=== PATIENT | female | born 1995 | race Caucasian/White ===

== ENCOUNTER 2017-04-10 05:38 | Emergency (ER) | payer OTHER ==
[2017-04-10] MEDS ORDERED: ONDANSETRON HCL/PF 2 MG/ML VIAL IV ONE (06:00)
[2017-04-10] MEDS ORDERED: ONDANSETRON HCL/PF 2 MG/ML VIAL ONE (06:01)
[2017-04-10] MEDS ORDERED: KETOROLAC TROMETHAMINE 30 MG/ML VIAL IV ONE (06:09)
[2017-04-10] MEDS ORDERED: KETOROLAC TROMETHAMINE 30 MG/ML VIAL ONE (06:10)
[2017-04-10] MEDS ORDERED: NORMAL SALINE 1,000 ML IV ONE (06:14)
[2017-04-10 06:19] LABS: Hematocrit 41.6 % (37.0-47.0); Hemoglobin 14.7 gm/dL (12.5-16.0); Mean Cell Volume 83.2 fl (78-100); Mean Corpuscular Hemoglobin 29.4 pg (27-31); Mean Corpuscular Hgb Conc 35.3 g/dl (32-36); Mean Platelet Volume 8.9 fl (6.0-9.5); Neutrophil # 5.1 K/mm3 (1.3-6.0); Platelet Count 299 K/mm3 (150-450); Red Cell Distribution Width 12.7 % (11.5-14.0); White Blood Count 8.4 K/mm3 (4.0-10.5)
--- NOTE | 2017-04-10 06:24 | ERNOTE ---
Abdominal HPI - Narrative Date of Service: 04/10/17 - General Chief Complaint: Abdominal Pain Time Seen by Provider: 04/10/17 06:02 Source: patient - Immun/Allergies/Home Medications Immunizatons: IMMUNIZATION HX Immunizations Up to Date Yes History of Influenza Vaccine Yes Hx Pneumococcal Vaccination No Allergies/Adverse Reactions: Allergies No Known Allergies Allergy (Verified 04/10/17 08:45) Home Medications: HOME MEDICATIONS Nor-Qd 0.35mg 1 tab PO DAILY 04/10/17 [Last Taken Unknown] - History of Present Illness Narrative: 21-year-old patient with no established primary care doctor due to start seeing Karine Naqvi presents to emergency room complaining of right upper quadrant abdominal pain in severe vomiting due to right upper quadrant abdominal pain. Patient has known cholelithiasis with recent exacerbation of severe pain patient 's was seen in consultation with Dr. Ramon. She is scheduled for cholecystectomy tomorrow April 11. Patient reports that she awoke this morning in severe pain and then followed by the emesis her pain is described as right upper quadrant radiating to her back even taking a deep breath causes pretty significant pain. Patient denied any fevers or chills her last intake of was last evening she had potato soup. Patient was initially diagnosed through the walk-in clinic as she did not have a primary care doctor. Patient presented with severe abdominal pain of right upper quadrant abdominal ultrasound was done and demonstrated significant evidence cholelithiasis with concerns for choledocholithiasis. Patient is denies any fevers or chills at this time denies any diarrhea. Date (Duration): 04/10/17 Time (Timing): 04:00 Timing: getting worse Quality: severe Activities at Onset: sleep Modifying Factors - (Improves): Present: analgesics, sitting up Associated Symptoms: Present: back pain, syncope. Absent: heartburn, swelling/ mass in abdomen Prior Abdominal Problems: Present: similar symptoms - started approximately 1-1/ 2 weeks ago with constant right upper quadrant pain previously had been intermittently. Now it's more consistent and the pain does not resolve spontaneously. Review of Systems - Narrative Narrative: Continued right upper quadrant abdominal pain associated with nausea. Diagnosed with cholelithiasis due for cholecystectomy 04/11/[address] Ramon. - Review of Systems Constitutional: Present: See HPI EYE: Present: no symptoms reported ENT: Present: no symptoms reported Respiratory: Present: no symptoms reported Cardiology: Present: no symptoms reported, See HPI Gastrointestinal/Abdominal: Present: nausea, vomiting, abdominal pain Genitourinary: Present: other. Absent: pain, dysuria, decreased urinary output Musculoskeletal: Present: back pain Skin: Present: no symptoms reported Neurological: Present: no symptoms reported Endocrine: Present: no symptoms reported Hematologic/Lymphatic: Present: no symptoms reported All Other Systems: All systems neg except as marked - Narrative Narrative: Reviewed past medical history. And all other history below: Past surgical history, social history, medications, allergies and family history - Patient's Past Medical History Patient History - Medical: Anemia, GERD, Other Patient History - Cardiac/Respiratory: No pertinent hx Patient History - Cancer: No Hx of Cancer Patient History - Surgical Procedures: Patient History - Other: None LMP (females 10-50): 3 weeks LMP (Calendar): 09/07/15 - Family History Mother Family History - Medical: History Unknown Family History - Cardiac/Respiratory: History Unknown Father Family History - Cardiac/Respiratory: History Unknown - Social History Living Situations: significant other Abuse History: No History of abuse Psych History: No pertinent hx Smoking Status: Never smoker Alcohol Use: rarely Drug Use: none, marijuana - Immunizations Immunizations Up to Date: Yes Hx Pneumococcal Vaccination: No History of Influenza Vaccine: Yes Physical Exam - Physical Exam General Appearance: Present: wd/wn, alert, moderate distress - due to severe right upper quadrant abdominal pain. Head Exam: Present: normal inspection, no evidence of injury Eye Exam: Normal inspection: bilateral, PERRL: bilateral, EOMI: bilateral Ears, Nose, Throat: Present: normal ENT inspection, normal pharynx Neck: Present: normal inspection, nontender Respiratory: Present: no respiratory distress, normal breath sounds, no accessory muscle use Cardiovascular/Chest: Present: regular rate, rhythm, no murmur, normal peripheral pulses Peripheral Pulses: N=norm/S=strong/W=weak/B=bound/A=absent: Carotid (R): Normal , Carotid (L): Normal Gastrointestinal/Abdominal: Present: tenderness, rebound, Dia sign Rectal Exam: Present: deferred Back Exam: Present: CVA tenderness (R) Extremity Exam: Present: normal inspection, normal range of motion, no edema Neurological Exam: Present: alert, oriented, normal mood/affect, no motor/ sensory deficits Skin Exam: Present: normal color, warm/dry Lymphatic Exam: Present: no adenopathy. Absent: axilla node (R), axilla node (L ) ED Progress - Results and Orders Patient's Lab Results:: I have reviewed the patient's lab results. Results and Orders: Laboratory Tests 04/10/17 06:15 WBC 8.4 RBC 5.00 Hgb 14.7 Hct 41.6 MCV 83.2 MCH 29.4 MCHC 35.3 RDW 12.7 Plt Count 299 MPV 8.9 Immature Gran % (Auto) 0.10 Immature Gran # (Auto) 0.01 Neutrophils % 61.0 Lymphocytes % 27.7 Monocytes % 8.1 Eosinophils % 2.6 Basophils % 0.5 Nucleated RBC % 0.0 Laboratory Tests 04/10/17 06:15 Sodium 141 Plasma Sodium 141 Potassium 3.9 Chloride 105 Carbon Dioxide 28.2 Anion Gap 11.7 BUN 13 Creatinine 0.71 Est GFR (Non-Af Amer) 108 D BUN/Creatinine Ratio 18.3 Random Glucose 120 H Calcium 8.8 Calcium Adj for Albumin 8.6 Total Bilirubin 0.4 AST 12 ALT 20 Alkaline Phosphatase 61 Total Protein 7.4 Albumin 3.9 - Vital Signs Patient's Vital Signs:: I have reviewed the patient's vital signs. Vital Signs: Vital Signs 04/10/17 05:41 Temperature 36.8 C Pulse Rate 84 Respiratory 14 Rate Blood Pressure 125/73 O2 Sat by Pulse 99 Oximetry - Progress/Reassessment Chief Complaint: Abdominal Pain Progress:: Improved Plan - Plan Plan: IV hydration, analgesic with ketorolac 30 mg IV, antiemetic Zofran 4 mg IV await labs and await response to the previously prescribed medications. Departure - Departure Clinical Impression: Nausea Cholelithiasis Qualifiers: Cholelithiasis location: gallbladder Cholecystitis presence: without cholecystitis Biliary obstruction: without biliary obstruction Qualified Code(s) : K80.20 - Calculus of gallbladder without cholecystitis without obstruction Disposition: Home self-care Condition: Good Instructions: Nausea, Adult, Clear Liquid Diet, [id number] Referrals: Sharon Ramon MD [Staff Physician] - 04/11/17 Karine Mcrae FNP [Primary Care Provider] -
[2017-04-10 06:33] LABS: Albumin * 3.9 gm/dl (3.4-5.0); Anion Gap 11.7 mmol/L (6.8-13.8); BUN/Creatinine Ratio 18.3 (9.0-21.6); Bilirubin, Total 0.4 mg/dL (0.0-1.1); Ca. Corrected For Albumin 8.6 mg/dL (8.4-10.2); Calcium * 8.8 mg/dL (7.9-10.9); Carbon Dioxide 28.2 mmol/L (24-32.6); Potassium 3.9 mmol/L (3.4-4.6); Total Protein 7.4 gm/dL (6.2-8.2)
[2017-04-10 07:26] VITALS: BP 119/76
== END 2017-04-10 07:25 | disposition home or self-care (01) ==
LOC: ER 05:38
DX: R11.0 Nausea (principal); K80.20 Calculus of gallbladder without cholecystitis without obstruction
CPT/HCPCS: 36415; 80053; 85025; 96374; 96375; 99284; J2405

== ENCOUNTER 2017-04-11 07:02 | Day surgery (SDC) | payer OTHER ==
[~2017-04-11 07:02] MED LIST: RINGERS SOLUTION,LACTATED 1,000 ML IV PRN; ceFAZolin SODIUM 2 GM in DEXTROSE 5 % IN WATER 50 ML IV PRN
[2017-04-11] MEDS ORDERED: RINGERS SOLUTION,LACTATED 1,000 ML IV ONE ×2 (07:50→09:30)
[2017-04-11] MEDS ORDERED: BUPIVACAINE HCL/EPINEPHRINE 50 ML VIAL IJ ONE ×2 (08:45)
[2017-04-11] MEDS ORDERED: MUPIROCIN 22 APPL TUBE TP ONE ×2 (08:50→09:43)
[2017-04-11] MEDS ORDERED: oxyCODONE HCL/ACETAMINOPHEN 1 TAB TABLET PO ONE (09:53)
[2017-04-11] MEDS ORDERED: RINGERS SOLUTION,LACTATED 1,000 ML IV PRN (09:53)
[2017-04-11] MEDS: oxyCODONE HCL/ACETAMINOPHEN 1 TAB TABLET PO PRN ×2 (12:48→14:02)
[2017-04-11 14:31] VITALS: BP 114/69
--- NOTE | 2017-04-11 14:33 | OR ---
Operative Report - Dictated Report Narrative: DATE OF OPERATION: 04/11/2017 PREOPERATIVE DIAGNOSIS: Cholelithiasis, cholecystitis POSTOPERATIVE DIAGNOSIS: Cholelithiasis, cholecystitis (pathology pending) OPERATION: Laparoscopic cholecystectomy SURGEON: WONG Ramon MD ANESTHESIA Gen. endotracheal Benjie Goins CRNA INDICATIONS FOR PROCEDURE: The patient is a 21-year-old female with recurrent bouts of right upper quadrant pain requiring emergency room and walk-in clinic visits. She has ultrasound evidence of cholelithiasis and cholecystitis FINDINGS: Cholelithiasis and cholecystitis (pathology pending) NARRATIVE OF PROCEDURE: The patient was identified preoperatively. Prior to the administration of anesthetic a multidisciplinary timeout observed. With the patient in the supine position, SCDs were placed, 2 g of intravenous Ancef administered, and general endotracheal anesthetic administered. The patient's abdomen was prepped with Betadine solution and a generous operating field outlined with 4 sterile towels. The remainder the patient was covered with a sterile disposable drape. An infraumbilical skin incision was made. Dissection was carried along the umbilical stalk until the fascia of the linea alba was encountered. This was incised. The peritoneum was then elevated and incised to allow entry into the abdomen under direct vision. A Hussan cannula was placed, and the abdomen insufflated with CO2. The laparoscopic camera was introduced and the abdomen briefly explored. Those portions of the liver, stomach, large and small bowel visualized appeared normal. The uterus and right tube appeared normal. The gallbladder was not immediately visible. Next under direct vision 3 additional working ports were inserted through separate skin incisions, one in the subxiphoid, one in the right upper quadrant, and one in the right flank. The gallbladder was then exposed and the apex of the gallbladder was grasped. The apex of the gallbladder was retracted cephalad. The cystic duct was dissected free for a sufficient distance for confident identification. It was doubly clipped and divided. The cystic artery was identified doubly clipped and divided. The gallbladder was then removed from the liver bed by retrograde electrocautery dissection. Prior to severing the last attachments of the gallbladder the liver bed was inspected and found to be hemostatic with no evidence of bile leak. The previously placed clips were seen to be intact. The right upper quadrant was suctioned clean. The last attachments of the gallbladder were divided. It was placed in an Endobag and parked in the right upper quadrant. The smaller working ports were withdrawn under direct vision to ensure entry site hemostasis. The gallbladder was removed in conjunction with the Hussan cannula. The pneumoperitoneum was allowed to escape, and after receiving a correct sponge needle and instrument count attention was turned to closing the abdomen. The fascia and peritoneum at the umbilicus were approximated with interrupted sutures of #1 Vicryl. Skin incisions were approximated with interrupted vertical mattress sutures of 4-0 nylon. The operative sites were washed and dried. Dressings of Bactroban ointment and large Band-Aids were applied to the small port sites. The umbilical incision was dressed with Bactroban ointment, 2 x 2, large Band-Aid and Medipore tape. The operative procedure was terminated at this point. The patient tolerated the anesthetic and procedure well without complication. There was no measurable blood loss. The gallbladder was submitted to pathology. 0.5% Marcaine with epinephrine was used for local anesthetic infiltration. The patient was transferred to the recovery room awake, extubated , and in stable condition. The patient remained stable throughout a period of postoperative observation. She was able to tolerate po intake and was up without assistance. Her pain was controlled with po Percocet. Her dressings remained dry. I reviewed the operative findings with her and she was given copies of the photographs which appear in the medical record. The patient was discharged home with instructions not to lift and not to drive. She is to leave the current dressing dry and intact for 48 hours, but then may shower and change the dressing daily or as needed. She was given phone numbers to call when necessary signs of wound infection or hematoma. The patient was given a prescription for Percocet 5/325 mg #30 1-2 po Q4-6hrs prn pain. A return office appointment was made for 1 week. Reviewed and electronically signed
== END 2017-04-11 07:03 | disposition home or self-care (01) ==
LOC: AMB 07:02
PROVIDERS: ATTEND Surgery
PROC: 0FT44ZZ Resection of Gallbladder, Percutaneous Endoscopic Approach (ICD-10-PCS; principal; 2017-04-11 08:30)
DX: K80.12 Calculus of gallbladder with acute and chronic cholecystitis without obstruction (principal); D64.9 Anemia, unspecified; K21.9 Gastro-esophageal reflux disease without esophagitis; Z68.29 Body mass index [BMI] 29.0-29.9, adult